=== PATIENT | female | born 1985 | race African-American/Black ===

== ENCOUNTER 2018-05-05 13:25 | Inpatient (IN) | payer OTHER ==
[~2018-05-05] VITALS: Ht 154.9 cm; Wt 96.8 kg
--- NOTE | 2018-05-05 14:40 | Diagnostic Imaging Report ---
EXAMINATION: CXR 2 VIEW - HOPD INDICATION: Chest pain. COMPARISON: None FINDINGS: TUBES and LINES: None. LUNGS: Lungs are mildly hypo inflated. Lungs are clear. There is no evidence of pneumonia or pulmonary edema. PLEURA: No pleural effusion or pneumothorax. HEART AND MEDIASTINUM: The cardiomediastinal silhouette is unremarkable. BONES AND SOFT TISSUES: No acute osseous lesion. Soft tissues are unremarkable. UPPER ABDOMEN: No free air under the diaphragm. IMPRESSION: No acute thoracic abnormality. Signed by: Dr. Gilberto Day M.D. on 05/05/2018 2:37 PM
[2018-05-05] MEDS ORDERED: FAMOTIDINE 20 MG/2 ML VIAL IV ONE (15:00)
[2018-05-05] MEDS ORDERED: PANTOPRAZOLE 40 MG 10ML VIAL IV ONE (15:00)
[2018-05-05] MEDS ORDERED: ENOXAPARIN SODIUM INJ 100 MG/ML SYR SC STA (15:11)
[2018-05-05] MEDS ORDERED: IOPAMIDOL 370 MG/ML 50ML INFUS..BTL INJ ONE (16:00)
--- NOTE | 2018-05-05 16:55 | Diagnostic Imaging Report ---
EXAM: CT Chest WITH contrast (PE Protocol) INDICATION: Chest pain. Elevated d-dimer. COMPARISON: None TECHNIQUE: Chest was scanned utilizing a multidetector helical scanner from the lung apex through the level of the diaphragm after administration of IV contrast. Thin section reconstructions were obtained with special concentration on the pulmonary arteries. Coronal and sagittal reformations were obtained. Pulmonary embolism protocol was performed. Coronal and sagittal MIP were acquired by the technologist on the scanner workstation. IV CONTRAST: 93 mL of Isovue 370 COMPLICATIONS: None RADIATION DOSE: Total DLP: 533.64 mGy*cm Estimated effective dose: (DLP x 0.014 x size factor) mSv CTDIvol has been reviewed. It is below the limits set by the Radiation Protocol Committee (RPC). FINDINGS: LINES/ TUBES: None. LUNGS AND AIRWAYS: Adequate contrast bolus. Scattered small volume subacute to chronic pulmonary emboli with mild eccentric filling defects. The associated vessel demonstrates decreased caliber in size. * Posterior branch of the right upper lobe (series 2 image 31) * Superior segment of the right lower lobe (series 2 image 39) * Superior segment of the left lower lobe (series 2 image 37). The lungs are unremarkable. Airways are normal. PLEURA: The pleural spaces are clear. HEART AND MEDIASTINUM: The thyroid gland is normal. No mediastinal, hilar or axillary lymphadenopathy. The heart is normal in size. There is no pericardial effusion. Main pulmonary artery measures 2.4 cm in diameter and the ascending aorta measures 2.8 cm. UPPER ABDOMEN: Unremarkable BONES: The visualized bony thorax is within normal limits. SOFT TISSUES: Unremarkable. IMPRESSION: A few scattered subacute to chronic pulmonary emboli. Results were discussed with Dr. Lorenzo by Dr. Day on 05/05/2018 at 4:50 PM. Signed by: Dr. Gilberto Day M.D. on 05/05/2018 4:51 PM
[2018-05-05] MEDS ORDERED: SODIUM CHLORIDE FLUSH 10 ML SYR INJ PRN (17:45)
[2018-05-05] MEDS ORDERED: ENOXAPARIN SODIUM INJ 100 MG/ML SYR SC SCH (18:00)
[2018-05-05 20:00] VITALS: BP 155/91
[2018-05-05 22:40] LABS: CREATINE KINASE MB 0.5 ng/mL (0-5.0)
[2018-05-06] VITALS (9 sets, daily range): BP systolic 114–152; BP diastolic 53–88
[2018-05-06] MEDS: ENOXAPARIN SODIUM INJ 100 MG/ML SYR SC SCH ×2 (03:10→15:06)
[2018-05-06 06:03] LABS: BASOPHILS % 0.6 % (0.0-1.0); EOSINOPHILS # (AUTO) 0.1 (0.0-0.4); EOSINOPHILS % 1.3 % (0.0-6.0); HEMATOCRIT 37.6 % (34.2-44.1); HEMOGLOBIN 12.4 g/dL (12.0-16.0); LYMPHOCYTES # (AUTO) 3.6 (1.0-3.2); LYMPHOCYTES % 50.8 % (18.0-39.1); MEAN CORPUSCULAR HEMOGLOBIN 28.7 pg (28-32); MONOCYTES # (AUTO) 0.6 (0.2-0.8); MONOCYTES % 8.6 % (4.4-11.3); NEUTROPHILS # (AUTO) 2.7 (2.1-6.9); NEUTROPHILS % 38.6 % (38.7-80.0); PLATELET COUNT 268 x10e3/uL (140-360); RED BLOOD COUNT 4.32 x10e6/uL (3.6-5.1); RED CELL DISTRIBUTION WIDTH 13.6 % (11.7-14.4)
[2018-05-06 06:16] LABS: PROTHROMBIN TIME 14.1 seconds (11.9-14.5)
[2018-05-06 06:17] LABS: PARTIAL THROMBOPLASTIN TIME 37.2 seconds (23.8-35.5)
[2018-05-06 06:32] LABS: ALANINE AMINOTRANSFERASE 12 IU/L (0-55); ALBUMIN 3.4 g/dL (3.5-5.0); ALKALINE PHOSPHATASE 50 IU/L (40-150); ANION GAP 11.5 mmol/L (8-16); BLOOD UREA NITROGEN 14 mg/dL (7-26); BUN/CREATININE RATIO 17 (6-25); CALCIUM 9.1 mg/dL (8.4-10.2); CARBON DIOXIDE 24 mmol/L (22-29); CHLORIDE 108 mmol/L (98-107); CHOL/HDL RATIO 3.3 (3.0-3.6); CHOLESTEROL 137 MD/DL (0-199); CREATININE, SERUM 0.82 mg/dL (0.57-1.11); EST GLOMERULAR FILTRATION RATE > 60 ML/MIN (60-); GLUCOSE 93 mg/dL (74-118); HDL CHOLESTEROL 42 MG/DL (40-60); LDL CHOLESTEROL 81 MG/DL (60-130); MAGNESIUM 1.9 MG/DL (1.3-2.1); PHOSPHORUS 3.8 MG/DL (2.3-4.7); POTASSIUM 3.5 mmol/L (3.5-5.1); SODIUM 140 mmol/L (136-145); TRIGLYCERIDES 70 MG/DL (0-149)
[2018-05-06 06:48] LABS: CREATINE KINASE 121 IU/L (29-168)
[2018-05-06] MEDS: PANTOPRAZOLE SOD 40 MG TABEC PO SCH (09:03)
--- NOTE | 2018-05-06 11:54 | History and Physical ---
PRIMARY CARE PHYSICIAN: None. CHIEF COMPLAINT: Chest pain. HISTORY OF PRESENT ILLNESS: This is a 32-year-old woman with no significant medical history, who recently traveled by airline using [employer] to [place] in January 2018, returned in February. She drove by car to [place] and to [place] and subsequently returned here by car to [place]. Now, she developed substernal chest pain for 7 days. She denies any nausea, vomiting, or dizziness. Denies any vision changes. Described the chest pressure as 8/10, now 3/10. CT of the chest showed a few scattered subacute to chronic pulmonary emboli. She is admitted for further evaluation and management. Patient admits to oral contraceptive pill use. PAST MEDICAL HISTORY: None. PAST SURGICAL HISTORY: x2, breast reduction. ALLERGIES: PER ELECTRONIC MEDICAL RECORD. SOCIAL HISTORY: Patient is . She has 2 children. No alcohol, illicits, or cigarettes. FAMILY HISTORY: No history of venous thromboembolism. MEDICATIONS: Per electronic medical record. REVIEW OF SYSTEMS: She denies any dizziness, vision changes, nausea, vomiting, diarrhea. Denies any leg pain, back pain. PHYSICAL EXAMINATION: VITAL SIGNS: Have been reviewed. GENERAL APPEARANCE: Tired-appearing woman resting in bed. HEENT: Anicteric. Pupils respond to light. No oral lesions. CARDIOVASCULAR: Normal S1 and S2. LUNGS: She has moderate breath sounds. ABDOMEN: Soft, nontender, nondistended. EXTREMITIES: No edema. Calf exam is deferred. SKIN: Dry. PSYCHIATRIC: Normal affect. NEUROLOGICAL: Alert and oriented x3. LABS: Reviewed. MEDICATIONS: Reviewed. ASSESSMENT: This is a 32-year-old woman. 1. Subacute pulmonary embolism. 2. Obesity. Body mass index is 39.5. 3. Oral contraceptive pill use. PLAN: 1. Will continue with Lovenox treatment dose. 2. Will add Coumadin. Patient has funding difficulties, that is why she will need to be on Coumadin. 3. Will follow INR. Once it is therapeutic between 2 and 3 for 2 consecutive days, we will plan to discharge home with Coumadin regimen. 4. Prophylaxis. Will use PPI while on Lovenox. Job#: [id number]
[2018-05-06 14:49] LABS: CREATINE KINASE 130 IU/L (29-168)
[2018-05-06] MEDS: WARFARIN SOD 5 MG TAB PO SCH (16:51)
[2018-05-07] VITALS (8 sets, daily range): BP systolic 112–154; BP diastolic 58–109
[2018-05-07] MEDS: ENOXAPARIN SODIUM INJ 100 MG/ML SYR SC SCH ×2 (03:29→14:31)
[2018-05-07 05:32] LABS: INR 0.93; PROTHROMBIN TIME 13.3 seconds (11.9-14.5)
[2018-05-07] MEDS: PANTOPRAZOLE SOD 40 MG TABEC PO SCH (07:44)
[2018-05-07] MEDS: WARFARIN SOD 5 MG TAB PO SCH (16:55)
--- NOTE | 2018-05-07 22:59 | Progress Note ---
DATE: May 07, 2018 TIME: 7:00 a.m. OVERNIGHT: No events. REVIEW OF SYSTEMS: Denies any dizziness, vision changes, leg pain, headache, nausea, vomiting, diarrhea. PHYSICAL EXAM VITAL SIGNS: Reviewed. GENERAL: A tired-appearing man resting in bed. HEENT: Anicteric. CARDIOVASCULAR: Normal S1, S2. LUNGS: Moderate breath sounds. ABDOMEN: Soft, nontender, nondistended. EXTREMITIES: No edema. NEUROLOGIC: Alert, oriented. LABS: Reviewed. MEDICATIONS: Reviewed. ASSESSMENT: A 32-year-old woman. 1. Subacute pulmonary embolism. 2. Obesity, body mass index 39.5. 3. Oral contraceptive pill use. PLAN 1. Continue Coumadin. 2. Continue Lovenox bridging. 3. INR 0.09. 4. Continue Coumadin at 7.5. 5. Follow up INR daily. 6. Continue PPI while on anticoagulant. Job#: [id number] CQ
[2018-05-08] VITALS (7 sets, daily range): BP systolic 94–146; BP diastolic 50–75
[2018-05-08] MEDS: ENOXAPARIN SODIUM INJ 100 MG/ML SYR SC SCH ×2 (03:11→16:09)
[2018-05-08 06:05] LABS: INR 0.93; PROTHROMBIN TIME 13.3 seconds (11.9-14.5)
[2018-05-08] MEDS: PANTOPRAZOLE SOD 40 MG TABEC PO SCH (08:08)
[2018-05-08] MEDS ORDERED: WARFARIN SOD 5 MG TAB PO SCH (17:00)
[2018-05-08 19:51] LABS: PROTHROMBIN TIME 14.1 seconds (11.9-14.5)
[2018-05-08] MEDS ORDERED: WARFARIN SOD 2.5 MG TAB PO ONE (20:30)
--- NOTE | 2018-05-08 22:27 | Progress Note ---
DATE: May 08, 2018 TIME: 6:30 a.m. OVERNIGHT: No events. REVIEW OF SYSTEMS: Denies any dizziness, chest pain. Denies any fever, chills, sweats, nausea, vomiting, diarrhea, leg pain, back pain, headache, vision changes. VITAL SIGNS: Reviewed. PHYSICAL EXAMINATION GENERAL: A tired-appearing woman resting in bed. HEENT: Anicteric. CARDIOVASCULAR: Normal S1, S2. LUNGS: Moderate breath sounds. ABDOMEN: Soft, nontender, nondistended. EXTREMITIES: No edema. SKIN: Dry. PSYCHIATRIC: Normal affect. LABS: Reviewed. MEDICATIONS: Reviewed. ASSESSMENT: A 32-year-old woman. 1. Subacute pulmonary embolism. 2. Obesity, body mass index 39.5. 3. Oral contraceptive pill use. PLAN 1. Increase Coumadin to 10 mg. 2. INR is still 0.9, may be resistant to Coumadin. Will follow up tomorrow. 3. Continue PPI while on oral anticoagulation. Job#: [id number]
[2018-05-09] VITALS (7 sets, daily range): BP systolic 96–140; BP diastolic 55–99
[2018-05-09] MEDS: ENOXAPARIN SODIUM INJ 100 MG/ML SYR SC SCH ×2 (03:19→15:29)
[2018-05-09 05:55] LABS: INR 1.07; PROTHROMBIN TIME 14.9 seconds (11.9-14.5)
[2018-05-09] MEDS: PANTOPRAZOLE SOD 40 MG TABEC PO SCH (09:08)
[2018-05-09 16:35] LABS: INR 1.13; PROTHROMBIN TIME 15.5 seconds (11.9-14.5)
[2018-05-09] MEDS ORDERED: WARFARIN SOD 5 MG TAB PO SCH (17:00)
[2018-05-09] MEDS: WARFARIN SOD 3 MG TAB PO SCH (17:32)
[2018-05-09] MEDS: WARFARIN SOD 5 MG TAB PO SCH (17:32)
[2018-05-10] VITALS (8 sets, daily range): BP systolic 111–128; BP diastolic 58–79
[2018-05-10] MEDS: ENOXAPARIN SODIUM INJ 100 MG/ML SYR SC SCH ×2 (03:29→15:54)
[2018-05-10 06:10] LABS: INR 1.36; PROTHROMBIN TIME 17.9 seconds (11.9-14.5)
[2018-05-10] MEDS: PANTOPRAZOLE SOD 40 MG TABEC PO SCH (07:30)
[2018-05-10 17:02] LABS: INR 1.42; PROTHROMBIN TIME 18.5 seconds (11.9-14.5)
[2018-05-10] MEDS: WARFARIN SOD 5 MG TAB PO SCH (17:52)
[2018-05-10] MEDS: WARFARIN SOD 3 MG TAB PO SCH (17:52)
[2018-05-11] VITALS (8 sets, daily range): BP systolic 91–131; BP diastolic 50–88
[2018-05-11] MEDS: ENOXAPARIN SODIUM INJ 100 MG/ML SYR SC SCH ×2 (03:40→15:30)
[2018-05-11 05:54] LABS: HEMATOCRIT 39.8 % (34.2-44.1)
[2018-05-11 06:06] LABS: INR 1.53; PROTHROMBIN TIME 19.7 seconds (11.9-14.5)
[2018-05-11] MEDS: PANTOPRAZOLE SOD 40 MG TABEC PO SCH (09:27)
[2018-05-11 16:09] LABS: INR 1.47; PROTHROMBIN TIME 19.1 seconds (11.9-14.5)
[2018-05-11] MEDS ORDERED: WARFARIN SOD 3 MG TAB PO SCH ×2 (17:00)
[2018-05-11] MEDS: WARFARIN SOD 3 MG TAB PO SCH (19:02)
[2018-05-11] MEDS: WARFARIN SOD 5 MG TAB PO SCH (19:02)
--- NOTE | 2018-05-11 23:53 | Progress Note ---
DATE: May 09, 2018 TIME: 7:35 a.m. OVERNIGHT: No events. REVIEW OF SYSTEMS: Denies any dizziness or chest pain. Denies any fever, chills, sweats, nausea, vomiting, or diarrhea. PHYSICAL EXAMINATION GENERAL APPEARANCE: A tired-appearing woman resting in bed. VITAL SIGNS: Reviewed. HEENT: Anicteric. CARDIOVASCULAR: Normal S1 and S2. LUNGS: Normal breath sounds. ABDOMEN: Soft, nontender, and nondistended. EXTREMITIES: No edema. SKIN: Dry. PSYCHIATRIC: Flat affect. LABS: Reviewed. MEDICATIONS: Reviewed. ASSESSMENT: A 32-year-old woman with: 1. Subacute pulmonary embolism. 2. Obesity, body mass index 39.5. 3. Oral contraceptive pill use. PLAN 1. Continue titrating Coumadin up. 2. INR was 1.07. 3. Follow INR daily. 4. Monitor hemoglobin and hematocrit. Job#: [id number] ZAY
--- NOTE | 2018-05-11 23:55 | Progress Note ---
DATE: May 10, 2018 TIME: 7:35 a.m. OVERNIGHT: No events. REVIEW OF SYSTEMS: Denies any dizziness or chest pain. Denies any fever, chills, sweats, nausea, vomiting, or diarrhea. PHYSICAL EXAMINATION GENERAL: A tired-appearing woman resting in bed. VITAL SIGNS: Reviewed. HEENT: Anicteric. CARDIOVASCULAR: Normal S1 and S2. LUNGS: Normal breath sounds. ABDOMEN: Soft, nontender, and nondistended. EXTREMITIES: No edema. SKIN: Dry. PSYCHIATRIC: Normal affect. LABS: Reviewed. MEDICATIONS: Reviewed. ASSESSMENT: A 32-year-old woman with: 1. Subacute pulmonary embolism. 2. Obesity, body mass index 39.5. 3. Oral contraceptive pill use. PLAN 1. Continue Coumadin, titrate up. 2. INR is beginning to improve. 3. Continue PPI. 4. Follow H and H. Job#: [id number] GOLD
[2018-05-12] VITALS (8 sets, daily range): BP systolic 111–138; BP diastolic 56–83
--- NOTE | 2018-05-12 00:39 | Progress Note ---
DATE: May 11, 2018 TIME: 7:35 a.m. OVERNIGHT: No events. REVIEW OF SYSTEMS: Denies any dizziness or chest pain. PHYSICAL EXAMINATION GENERAL APPEARANCE: A tired-appearing woman, resting in bed. VITAL SIGNS: Reviewed. HEENT: Anicteric. CARDIOVASCULAR: Normal S1 and S2. LUNGS: Normal breath sounds. ABDOMEN: Soft, nontender, and nondistended. EXTREMITIES: No edema. SKIN: Dry. PSYCHIATRIC: Normal affect. LABS: Reviewed. MEDICATIONS: Reviewed. ASSESSMENT: A 32-year-old woman with: 1. Subacute pulmonary embolism. 2. Obesity, body mass index 39.5. 3. Oral contraceptive pill use. 4. Low blood pressure. PLAN 1. INR 1.53; we will increase Coumadin to 60 mg. 2. Continue to follow INR. 3. Continue PPI. 4. Monitor for bleeding. Job#: [id number] GAU
[2018-05-12] MEDS: ENOXAPARIN SODIUM INJ 100 MG/ML SYR SC SCH ×2 (03:42→15:48)
[2018-05-12 05:41] LABS: INR 1.82; PROTHROMBIN TIME 22.5 seconds (11.9-14.5)
[2018-05-12] MEDS: PANTOPRAZOLE SOD 40 MG TABEC PO SCH (09:37)
[2018-05-12 16:33] LABS: INR 1.85; PROTHROMBIN TIME 22.8 seconds (11.9-14.5)
[2018-05-12] MEDS: WARFARIN SOD 5 MG TAB PO SCH ×2 (17:00→19:06)
[2018-05-12] MEDS: WARFARIN SOD 3 MG TAB PO SCH (17:00)
--- NOTE | 2018-05-12 17:39 | Progress Note ---
DATE: May 12, 2018 TIME OF SERVICE: 11:10 a.m. OVERNIGHT: No acute events. REVIEW OF SYSTEMS: Patient denies dizziness, chest pain, or shortness of breath. Denies nausea, vomiting, diarrhea, fevers, chills, sweats, or leg pain. PHYSICAL EXAMINATION VITAL SIGNS: T 97.3, P 87, R 16, BP 138/83, and SpO2 on RA 100%. GENERAL APPEARANCE: This is a tired-appearing woman, sitting on the side of bed. HEENT: Normocephalic without sinus tenderness. Mucous membranes moist and intact. NECK: Trachea midline without JVD. CARDIOVASCULAR: Regular rate. S1, S2 without extracardiac sounds appreciated. LUNGS: Bilateral breath sounds are clear to auscultation. ABDOMEN: Soft, nontender, nondistended. EXTREMITIES: Without edema. SKIN: Dry. PSYCHIATRIC: Normal affect. LABS: Reviewed. INR this a.m. is 1.82. MEDICATIONS 1. Protonix 40 mg a.c. breakfast. 2. Lovenox 90 mg subcu q.12 hours. 3. Coumadin current dose 50 mg at 1700. ASSESSMENT AND PLAN: This is a 32-year-old female with; 1. Subacute pulmonary embolism. INR 1.8 this day. Coumadin increased to 50 mg. Followup INR pending this afternoon. 2. Obesity, body mass index 39.5. Outpatient calorie management. 3. Oral contraceptive pill use. Patient instructed to discontinue and follow up as outpatient for alternate form of control. 4. Low blood pressure. Continue to monitor. 5. Prophylaxis, ambulation and with anticoagulation and Protonix. In addition, continue to follow INR. Monitor for bleeding. Dictated by: Sid Ferris NP Job#: [id number] FANNIE
[2018-05-12] MEDS: WARFARIN SOD 2 MG TAB PO SCH (19:05)
[2018-05-13] VITALS (8 sets, daily range): BP systolic 104–151; BP diastolic 59–84
[2018-05-13] MEDS: ENOXAPARIN SODIUM INJ 100 MG/ML SYR SC SCH ×2 (03:18→16:28)
[2018-05-13 06:49] LABS: INR 2.18; PROTHROMBIN TIME 25.9 seconds (11.9-14.5)
[2018-05-13] MEDS: PANTOPRAZOLE SOD 40 MG TABEC PO SCH (08:45)
[2018-05-13] MEDS: WARFARIN SOD 2 MG TAB PO SCH (16:00)
[2018-05-13] MEDS: WARFARIN SOD 5 MG TAB PO SCH ×2 (16:05→17:34)
[2018-05-13 16:41] LABS: HEMATOCRIT 39.7 % (34.2-44.1)
[2018-05-13 16:52] LABS: INR 1.91; PROTHROMBIN TIME 23.4 seconds (11.9-14.5)
[2018-05-13] MEDS: WARFARIN SOD 3 MG TAB PO SCH (17:33)
[2018-05-14] VITALS: BP 127/78
[2018-05-14] MEDS: ENOXAPARIN SODIUM INJ 100 MG/ML SYR SC SCH ×2 (03:13→16:26)
[2018-05-14 04:00] VITALS: BP 116/56
[2018-05-14] MEDS ORDERED: COUMADIN5 MG PO (04:51)
[2018-05-14] MEDS ORDERED: PROTONIX40 MG/ML PO (04:51)
[2018-05-14 06:28] LABS: INR 2.25; PROTHROMBIN TIME 26.6 seconds (11.9-14.5)
[2018-05-14 09:06] VITALS: BP 98/54
[2018-05-14] MEDS: PANTOPRAZOLE SOD 40 MG TABEC PO SCH (09:30)
[2018-05-14 10:40] VITALS: BP 98/54
[2018-05-14 12:19] VITALS: BP 112/53
[2018-05-14] MEDS: WARFARIN SOD 3 MG TAB PO SCH (16:00)
[2018-05-14] MEDS: WARFARIN SOD 5 MG TAB PO SCH (16:00)
--- NOTE | 2018-05-14 19:55 | Progress Note ---
DATE: May 13, 2018 TIME: 7:45 a.m. OVERNIGHT: No events. REVIEW OF SYSTEMS: Denies any dizziness, chest pain, shortness of breath, fever, chills, sweats, nausea, vomiting, diarrhea. PHYSICAL EXAMINATION: VITAL SIGNS: Reviewed. GENERAL APPEARANCE: Tired-appearing woman resting in bed. HEENT: Anicteric. CARDIOVASCULAR: Normal S1 and S2. LUNGS: Moderate breath sounds. ABDOMEN: Soft, nontender, nondistended. EXTREMITIES: No edema. SKIN: Dry. PSYCHIATRIC: Normal affect. LABS: Reviewed. MEDICATIONS: Reviewed. ASSESSMENT: A 32-year-old woman. 1. Subacute pulmonary embolism. 2. Obesity. Body mass index 39.5. 3. Oral contraceptive pill use. PLAN: 1. Continue Coumadin dose and increase as appropriate. 2. Follow up INR. 3. Discharge planning. Job#: [id number]
--- NOTE | 2018-05-14 20:06 | Discharge Summary ---
PRINCIPAL DIAGNOSES: 1. Subacute pulmonary embolism. 2. Obesity. Body mass index 39.5. 3. Oral contraceptive pill use. SECONDARY DIAGNOSIS: Oral contraceptive pill use. CHIEF COMPLAINT AND HISTORY OF PRESENT ILLNESS: Please refer to H and P. HOSPITAL COURSE: Patient found to have subacute pulmonary embolism, started on Coumadin. Patient Coumadin a day, increased Coumadin to 50 mg daily. She had obesity, BMI 39.5. Oral contraceptive pill use, I have encouraged her to quit OCP (oral contraceptive pill) use, and she will need to follow up closely outpatient. DISCHARGE MEDICATIONS: Per electronic medical record. FOLLOWUP: With primary care doctor in 1 week. CONDITION ON DISCHARGE: Stable and improving. DISCHARGE LOCATION: Home. DARIN PATEL MD Job#: [id number]
--- OUTSIDE RECORDS SUMMARY | 2018-05-21 09:02 | XMS REPORT ---
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 Allergies, Adverse Reactions, Alerts This patient has no known allergies or adverse reactions. Medications This patient has no known medications. Results Test Description Test Time Test Comments Text Results Atomic Results Result Comments CT ANGIO CHEST-HOPD 2018-05-05 16:42:00 [facility] [address] [place], [place] [address] Patient Name: YVROSE BLACK MR #: [id number] : 1985 Age/Sex: 32/F Req #: [id number] Adm Physician: Ordered by: MYRIAM SU MD Report #: [id number] Location: [facility] Room/Bed: Procedure: [id number] HOPD/CT ANGIO CHEST-HOPD Exam Date: 05/05/18 Exam Time: 1540 REPORT STATUS: Signed EXAM: CT Chest WITH contrast (PE Protocol) INDICATION: Chest pain. Elevated d-dimer. COMPARISON: None TECHNIQUE: Chest was scanned utilizing a multidetector helical scanner from the lung apex through the level of the diaphragm after administration of IV contrast. Thin section reconstructions were obtained with special concentration on the pulmonary arteries. Coronal and sagittal reformations were obtained. Pulmonary embolism protocol was performed. Coronal and sagittal MIP were acquired by the technologist on the scanner workstation. IV CONTRAST: 93 mL of Isovue 370 COMPLICATIONS: None RADIATION DOSE: Total DLP: 533.64 mGy*cm Estimated effective dose: (DLP x 0.014 x size factor) mSv CTDIvol has been reviewed. It is below the limits set by the Radiation Protocol Committee (RPC). FINDINGS: LINES/ TUBES: None. LUNGS AND AIRWAYS: Adequate contrast bolus. Scattered small volume subacute to chronic pulmonary emboli with mild eccentric filling defects. The associated vessel demonstrates decreased caliber in size. * Posterior branch of the right upper lobe (series 2 image 31) * Superior segment of the right lower lobe (series 2 image 39) * Superior segment of the left lower lobe (series 2 image 37). The lungs are unremarkable. Airways are normal. PLEURA: The pleural spaces are clear. HEART AND MEDIASTINUM: The thyroid gland is normal. No mediastinal, hilar or axillary lymphadenopathy. The heart is normal in size. There is no pericardial effusion. Main pulmonary artery measures 2.4 cm in diameter and the ascending aorta measures 2.8 cm. UPPER ABDOMEN: Unremarkable BONES: The visualized bony thorax is within normal limits. SOFT TISSUES: Unremarkable. IMPRESSION: A few scattered subacute to chronic pulmonary emboli. Results were discussed with Dr. Su by Dr. Day on 05/05/2018 at 4:50 PM. Signed by: Dr. Caitlin Day M.D. on 05/05/2018 4:51 PM Dictated By: CAITLIN DAY MD 50 Transcribed By: OMEGA on 05/05/181650 COPY TO: MYRIAM US MD CXR 2 VIEW - [facility] 2018-05-05 14:36:00 [place] [address] Patient Name: YVROSE BLACK MR #: [id number] : 1985 Age/Sex: 32/F Req #: [id number] Adm Physician: Ordered by: MYRIAM SU MD Report #: [id number] Location: [facility] Room/Bed: Procedure: [id number] HOPD/CXR 2 VIEW - HOPD Exam Date: 05/05/18 Exam Time: 1420 REPORT STATUS: Signed EXAMINATION: CXR 2 VIEW - HOPD INDICATION: Chest pain. COMPARISON: None FINDINGS: TUBES and LINES: None. LUNGS: Lungs are mildly hypo inflated. Lungs are clear. There is no evidence of pneumonia or pulmonary edema. PLEURA: No pleural effusion or pneumothorax. HEART AND MEDIASTINUM: The cardiomediastinal silhouette is unremarkable. BONES AND SOFT TISSUES: No acute osseous lesion. Soft tissues are unremarkable. UPPER ABDOMEN: No free air under the diaphragm. IMPRESSION: No acute thoracic abnormality. Signed by: Dr. Caitlin Day M.D. on 05/05/2018 2:37 PM Dictated By: CAITLIN DAY MD 1432 Transcribed By: OMEGA on 05/05/18 1437 COPY TO: MYRIAM SU MD
== END 2018-05-14 16:35 | disposition home or self-care (01) | DRG 176 ==
LOC: FSED 13:25 → ERHOLD 17:44 → MED/SURG 18:40
PROVIDERS: ADMIT Internal Medicine; ATTEND Internal Medicine
DX: I26.99 Other pulmonary embolism without acute cor pulmonale (principal); Z68.41 Body mass index [BMI] 40.0-44.9, adult; E66.9 Obesity, unspecified; I95.9 Hypotension, unspecified; Z79.3 Long term (current) use of hormonal contraceptives; Z28.21 Immunization not carried out because of patient refusal
CPT/HCPCS: 36415; 71046; 71275; 80048; 80053; 80061; 80076; 80307; 81003; 81025; 82550; 82553; 83036; 83735; 84100; 84484; 85014; 85018; 85025; 85379; 85610; 85730; 93005; 99284; J1650; Q9967

== ENCOUNTER 2018-12-20 08:24 | Emergency (ER) | payer OTHER ==
[~2018-12-20] VITALS: Ht 154.9 cm; Wt 96.6 kg
[~2018-12-20 08:24] MED LIST: COUMADIN5 MG PO; PROTONIX40 MG/ML PO
[2018-12-20] MEDS ORDERED: SODIUM CHLORIDE 0.9% 50ML 50 ML ONE (10:28)
[2018-12-20] MEDS ORDERED: IOPAMIDOL 370 MG/ML 200 ML INFUS..BTL INJ ONE (10:28)
--- NOTE | 2018-12-20 10:45 | NUR ---
PENDING CT RESULTS. DENIES SOB. NO CP
--- NOTE | 2018-12-20 10:45 | Diagnostic Imaging Report ---
EXAM: CT Chest WITH contrast 12/20/2018 12:00 AM INDICATION: Chest pain COMPARISON: CT chest PE protocol, 05/05/2018 TECHNIQUE: Chest was scanned utilizing a multidetector helical scanner from the lung apex through the level of the diaphragm after administration of IV contrast. Thin section reconstructions were obtained with special concentration on the pulmonary arteries. Coronal and sagittal reformations were obtained. Pulmonary embolism protocol was performed. Dose modulation, iterative reconstruction, and/or weight based adjustment of the mA/kV was utilized to reduce the radiation dose to as low as reasonably achievable IV CONTRAST: 100 cc Isovue-370 RADIATION DOSE: Total DLP: 472.13 mGy*cm Estimated effective dose: (DLP x 0.014 x size factor) mSv COMPLICATIONS: None FINDINGS: LINES/ TUBES: None. LUNGS AND AIRWAYS: Suboptimal contrast bolus with extensive motion and mixing artifact in the main pulmonary arteries. Previously described filling defects in the posterior branch of the right upper lobe (series 2, image 29), superior segment right lower lobe (image 38) and superior segment left lower lobe (image 35) are no longer seen. To the limits of vessel opacification, there are no new filling defects. No focal pulmonary opacity. Airways are normal. PLEURA: The pleural spaces are clear. HEART AND MEDIASTINUM: The thyroid gland is normal. No mediastinal, hilar or axillary lymphadenopathy. The heart is normal in size.. There is no pericardial effusion. No aneurysm or dissection of the thoracic aorta. Main pulmonary artery measures 2.0 cm, nondilated. UPPER ABDOMEN: Included portions of the liver, spleen, pancreas, adrenals and kidneys show no focal abnormality. BONES: No acute or suspicious bony lesions. SOFT TISSUES: Superficial surrounding soft tissue unremarkable. IMPRESSION: 1. Suboptimal bolus. Pulmonary artery visualization is suboptimal due to motion and mixing artifact. The previously noted segmental filling defects are no longer identified and have apparently resolved. No new filling defects are seen. 2. No focal pulmonary opacity or pleural effusion. 3. No dilatation of the main pulmonary artery. No aneurysm or dissection of the thoracic aorta. Staff: Edwardo Signed by: Dr. Waqas Brooke M.D. on 12/20/2018 10:42 AM
== END 2018-12-20 11:49 | disposition home or self-care (01) ==
LOC: FSED 08:24
DX: R07.89 Other chest pain (principal); R06.00 Dyspnea, unspecified
CPT/HCPCS: 71275; 80053; 82553; 84484; 85025; 85610; 93005; 99284; Q9967

== ENCOUNTER 2020-02-14 11:09 | Emergency (ER) | payer OTHER ==
[~2020-02-14] VITALS: Ht 154.9 cm; Wt 87.1 kg
[2020-02-14] MEDS ORDERED: XARELTO20 MG (11:27)
[2020-02-14] MEDS ORDERED: METOPROLOL SUCC50 MG PO (11:27)
[2020-02-14] MEDS ORDERED: TIZANIDINE HCL4 MG PO (11:46)
[2020-02-14] MEDS ORDERED: ACETAMINOPHEN500 MG PO (11:46)
--- NOTE | 2020-02-14 11:46 | Emergency Department Note ---
History of Present Illnes History of Present Illness Chief Complaint: Back Pain History of Present Illness This is a 34 year old female, Reports that since she has had mid to low back pain and has a hx of PE so she just wants to get checked out and make sure she does not have another one, as she has been feeling hot lately but does not have a temp and that is how she felt when she was dx with her last one. She is currently taking Xeralto blood thinner. She has no SOB, saturation at 98 % RA . Historian: Patient Arrival Mode: Car Additional Treatment OUTPATIENT PHYSICAL THERAPIST: tylenol 650mg 1000 Fine Unhairer Required: No Radiation: Reports back Severity: mild, moderate Onset quality: gradual Progression: improving Relieving factors: none Exacerbating factors: none Associated symptoms: Reports denies other symptoms Treatments prior to arrival: none Past Medical/Family History Physician Review I have reviewed the patient's past medical and family history. Any updates have been documented here. Past Medical History Recent Fever: No Clinical Suspicion of Infectio: No New/Unexplained Change in Ment: No Past Medical History: Hypertension, DVT/PE Other Medical History: P.E. ON XAROLTO Past Surgical History: Other Surgery: x2 breast reduction Social History Smoking Cessation: Never Smoker Counseling Performed: No Alcohol Use: None Any Illegal Drug Use: No Physically hurt or threatened: No Other Last Tetanus: no Any Pre-Existing Lines (PICC,: No Review of Systems Review of Systems Constitutional: Reports no symptoms EENTM: Reports no symptoms Cardiovascular: Reports no symptoms Respiratory: Reports no symptoms Gastrointestinal: Reports no symptoms Genitourinary: Reports no symptoms Musculoskeletal: Reports as per HPI, Reports back pain Integumentary: Reports no symptoms Neurological: Reports no symptoms Psychological: Reports no symptoms Endocrine: Reports no symptoms Hematological/Lymphatic: Reports no symptoms Physical Exam Related Data Allergies: Coded Allergies: hydrocodone (Verified Allergy, Mild, itching, 02/14/20) pt can and does take tylenol as she is on blood thinners Triage Vital Signs Vital Signs Date Time Temp Pulse Resp B/P (MAP) Pulse Ox O2 Delivery O2 Flow Rate FiO2 02/14/20 11:15 97.3 100 16 150/99 100 Room Air Physical Exam CONSTITUTIONAL Constitutional: Present well-developed, Present well-nourished HENT HENT: Present normocephalic, Present atraumatic, Present oropharynx clear/moist, Present nose normal HENT L/R: Present left ext ear normal, Present right ext ear normal EYES Eyes: Reports PERRL, Reports conjunctivae normal NECK Neck: Present ROM normal PULMONARY Pulmonary: Present effort normal, Present breath sounds normal CARDIOVASCULAR Cardiovascular: Present regular rhythm, Present heart sounds normal, Present capillary refill normal, Present normal rate GASTROINTESTINAL Abdominal: Present soft, Present nontender, Present bowel sounds normal GENITOURINARY Genitourinary: Present exam deferred SKIN Skin: Present warm, Present dry MUSCULOSKELETAL Musculoskeletal: Present tenderness (paraspinous muscle tenderness) NEUROLOGICAL Neurological: Present alert, Present oriented x 3, Present no gross motor or sensory deficits PSYCHOLOGICAL Psychological: Present mood/affect normal, Present judgement normal Results Laboratory Lab results reviewed: Yes Assessment & Plan Medical Decision Making MDM musculoskeletal pain, doubt an other PE Reassessment Reassessment walking steady gait, in NAD Assessment & Plan Final Impression: (1) Acute bilateral back pain (2) Muscle spasm Depart Disposition: HOME, SELF-CARE Last Vital Signs Date Time Temp Pulse Resp B/P (MAP) Pulse Ox O2 Delivery O2 Flow Rate FiO2 02/14/20 11:15 97.3 100 16 150/99 100 Room Air Home Meds Active Scripts Acetaminophen (ACETAMINOPHEN) 500 Mg Tablet, 1 TAB PO Q6H PRN for pain, #90 THERAPEUTICALLY SUBSTITUTED WITH ACETAMINOPHEN 325MG Prov:IRWIN NUGENT MD 02/14/20 Tizanidine Hcl (TIZANIDINE HCL) 4 Mg Tablet, 4 MG PO Q8H PRN for pain, #20 TAB Prov:IRWIN NUGENT MD 02/14/20 Reported Medications Metoprolol Succinate (METOPROLOL SUCCINATE) 50 Mg Tab.er.24h, 50 MG PO DAILY, MG 02/14/20 Rivaroxaban (XARELTO) 20 Mg Tablet, DAILY 02/14/20 Discontinued Scripts Warfarin Sodium (COUMADIN) 5 Mg Tablet, 18 MG PO QD17 for 10 Days Prov:DARIN PATEL MD 05/14/18 Pantoprazole Sod (PROTONIX) 40 Mg/Ml Susp, 40 MG PO ACB for 30 Days Prov:DARIN PATEL MD 05/14/18 IRWIN NUGENT MD Feb 14, 2020 11:46
[2020-02-16] MEDS ORDERED: AZITHROMYCIN250 MG PO (00:15)
== END 2020-02-14 12:00 | disposition home or self-care (01) ==
LOC: FSED 11:34
DX: M54.5 Low back pain (principal); M62.830 Muscle spasm of back; I10 Essential (primary) hypertension; Z79.01 Long term (current) use of anticoagulants; Z86.711 Personal history of pulmonary embolism
CPT/HCPCS: 81003; 99283

== ENCOUNTER 2020-02-15 18:06 | Emergency (ER) | payer OTHER ==
[~2020-02-15] VITALS: Ht 154.9 cm; Wt 87.1 kg
[~2020-02-15 18:06] MED LIST changes: +ACETAMINOPHEN500 MG PO; +METOPROLOL SUCC50 MG PO; +TIZANIDINE HCL4 MG PO; +XARELTO20 MG
[2020-02-15 19:24] LABS: BASOPHILS % 0.3 % (0.0-1.0); EOSINOPHILS % 0.5 % (0.0-6.0); HEMATOCRIT 36.9 % (34.2-44.1); HEMOGLOBIN 11.1 g/dL (12.0-16.0); LYMPHOCYTES # (AUTO) 0.9 (1.0-3.2); LYMPHOCYTES % 23.7 % (18.0-39.1); MEAN CORPUSCULAR HEMOGLOBIN 24.7 pg (28-32); MEAN CORPUSCULAR HGB CONC 30.1 g/dL (31-35); MEAN CORPUSCULAR VOLUME 82.2 fL (81-99); MONOCYTES # (AUTO) 0.4 (0.2-0.8); MONOCYTES % 11.3 % (4.4-11.3); NEUTROPHILS # (AUTO) 2.4 (2.1-6.9); NEUTROPHILS % 63.9 % (38.7-80.0); PLATELET COUNT 286 x10e3/uL (140-360); RED BLOOD COUNT 4.49 x10e6/uL (3.6-5.1); RED CELL DISTRIBUTION WIDTH 15.6 % (11.7-14.4)
[2020-02-15 19:33] LABS: CLARITY,URINE SL CLOUDY (CLEAR); COLOR,URINE YELLOW (YELLOW)
[2020-02-15 19:35] LABS: BILIRUBIN,URINE NEGATIVE (NEGATIVE); KETONES,URINE NEGATIVE (NEGATIVE); LEUKOCYTE ESTERASE ,URINE NEGATIVE (NEGATIVE); NITRITE,URINE NEGATIVE (NEGATIVE); PROTEIN,URINE DIPSTICK NEGATIVE (NEGATIVE); URINE UROBILINOGEN 0.2 mg/dL (0.2 - 1)
[2020-02-15 19:37] LABS: INR 1.05; PARTIAL THROMBOPLASTIN TIME 30.5 seconds (23.8-35.5); PROTHROMBIN TIME 14.3 seconds (11.9-14.5)
[2020-02-15 19:39] LABS: BACTERIA,URINE MODERATE /HPF; EPITHELIAL CELLS,URINE MODERATE /LPF; WBC,URINE (MAN) 0-5 /HPF (0-5)
[2020-02-15 19:44] LABS: ALANINE AMINOTRANSFERASE 38 IU/L (0-55); ALBUMIN 4.1 g/dL (3.5-5.0); ALBUMIN/GLOBULIN RATIO 1.1 (0.8-2.0); ALKALINE PHOSPHATASE 72 IU/L (40-150); ANION GAP 12.1 mmol/L (8-16); BLOOD UREA NITROGEN 6 mg/dL (7-26); BUN/CREATININE RATIO 6 (6-25); CALCIUM 9.5 mg/dL (8.4-10.2); CARBON DIOXIDE 27 mmol/L (22-29); CHLORIDE 104 mmol/L (98-107); CREATINE KINASE 115 IU/L (29-168); CREATININE, SERUM 0.98 mg/dL (0.57-1.11); EST GLOMERULAR FILTRATION RATE > 60 ML/MIN (60-); GLUCOSE 98 mg/dL (74-118); POTASSIUM 4.1 mmol/L (3.5-5.1); SODIUM 139 mmol/L (136-145)
--- NOTE | 2020-02-15 19:55 | Diagnostic Imaging Report ---
EXAMINATION: CHEST SINGLE (PORTABLE) INDICATION: Chest pain, short of breath, abdominal pain, pending Covid test COMPARISON: None FINDINGS: TUBES and LINES: None. LUNGS: Low lung volumes. Subtle right infrahilar and left basilar haziness. PLEURA: No pleural effusion or pneumothorax. HEART AND MEDIASTINUM: Normal. BONES AND SOFT TISSUES: No acute osseous lesion. Soft tissues are unremarkable. UPPER ABDOMEN: No free air under the diaphragm. IMPRESSION: Low lung volumes. Subtle right infrahilar and left basilar haziness can be due to atelectasis or pneumonia. Lung field evaluation is limited due to suboptimal portable technique low lung volumes and body habitus. Signed by: Reginaldo Perez DO on 02/15/2020 7:51 PM
[2020-02-15] MEDS ORDERED: SODIUM CHLORIDE 0.9% 50ML 50 ML ONE (20:13)
[2020-02-15] MEDS ORDERED: IOPAMIDOL 370 MG/ML 200 ML INFUS..BTL INJ ONE (20:13)
--- NOTE | 2020-02-15 22:08 | Diagnostic Imaging Report ---
EXAM: CT Chest WITH contrast (PE protocol) 02/15/2020 8:55 PM INDICATION: Cough, congestion COMPARISON: Chest CT 12/20/2018 TECHNIQUE: Chest was scanned utilizing a multidetector helical scanner from the lung apex through the level of the diaphragm after administration of IV contrast. Thin section reconstructions were obtained with special concentration on the pulmonary arteries. Coronal and sagittal reformations were obtained. Pulmonary embolism protocol was performed. IV CONTRAST: 100 mL of Isovue 370 COMPLICATIONS: None RADIATION DOSE: Total DLP: 430 mGy*cm Estimated effective dose: (DLP x 0.014 x size factor) mSv CTDIvol has been reviewed. It is below the limits set by the Radiation Protocol Committee (RPC). Dose modulation, iterative reconstruction, and/or weight based adjustment of the mA/kV was utilized to reduce the radiation dose to as low as reasonably achievable. FINDINGS: LINES/ TUBES: None. LUNGS AND AIRWAYS: Subtle bibasilar ground glass haziness with subtle groundglass nodules. Focal groundglass opacity in the superior aspect of the right lower lobe a few other scattered groundglass opacities in left upper lobe. Airways are normal. PLEURA: The pleural spaces are clear. HEART AND MEDIASTINUM: The thyroid gland is normal. No mediastinal, hilar or axillary lymphadenopathy. The heart is normal in size. There is no pericardial effusion. UPPER ABDOMEN: Unremarkable. BONES: The visualized bony thorax is within normal limits. SOFT TISSUES: Unremarkable. IMPRESSION: Subtle scattered ground glass opacities concerning for viral pneumonia. No pulmonary embolus. Signed by: Reginaldo Perez DO on 02/15/2020 10:05 PM
--- NOTE | 2020-02-15 22:38 | Emergency Department Note ---
History of Present Illnes History of Present Illness Chief Complaint: Respiratory History of Present Illness This is a 34 year old female arrives to the ED with complaints of cough fever generalized malaise patient was concerned she might have a pulmonary embolus. Patient states travel for work and became sick. Patient states she has been self quarantining February 08 her children and are doing well. Chief Complaint Comment C/O COUGH, DIFFICULTY BREATHING, CP, BACK PAIN STARTED THURS HX OF PE WENT TO URGENT CARE AND TOLD RIGHT LUNG SOUNDED WHEEZY AND SUGGESTED PT GO TO ER FOR FURTHER EVAL C/O ABD BREATHING Historian: Patient Arrival Mode: Car Onset (how long ago): day(s) Radiation: Reports non-radiation Duration (how long): day(s) Timing of current episode: constant Progression: unchanged Chronicity: new Relieving factors: none Exacerbating factors: none Past Medical/Family History Physician Review I have reviewed the patient's past medical and family history. Any updates have been documented here. Past Medical History Recent Fever: Yes Clinical Suspicion of Infectio: Yes New/Unexplained Change in Ment: No Past Medical History: Hypertension, DVT/PE Other Medical History: P.E. ON XAROLTO Past Surgical History: Other Surgery: x2 breast reduction Social History Smoking Cessation: Never Smoker Counseling Performed: No Alcohol Use: None Any Illegal Drug Use: No Physically hurt or threatened: No Other Last Tetanus: no Any Pre-Existing Lines (PICC,: No Review of Systems Review of Systems Constitutional: Reports as per HPI, Reports fever EENTM: Reports no symptoms Cardiovascular: Reports no symptoms Respiratory: Reports as per HPI, Reports cough Gastrointestinal: Reports no symptoms Genitourinary: Reports no symptoms Musculoskeletal: Reports no symptoms Integumentary: Reports no symptoms Neurological: Reports no symptoms Psychological: Reports no symptoms Endocrine: Reports no symptoms Hematological/Lymphatic: Reports no symptoms Physical Exam Related Data Allergies: Coded Allergies: hydrocodone (Verified Allergy, Mild, itching, 02/14/20) pt can and does take tylenol as she is on blood thinners Triage Vital Signs Vital Signs Date Time Temp Pulse Resp B/P (MAP) Pulse Ox O2 Delivery O2 Flow Rate FiO2 02/15/20 18:18 101.4 92 18 125/90 99 Room Air Vital signs reviewed: Yes Physical Exam CONSTITUTIONAL Constitutional: Present well-developed, Present well-nourished HENT HENT: Present normocephalic, Present atraumatic, Present oropharynx erlin r/moist, Present nose normal HENT L/R: Present left ext ear normal, Present right ext ear normal EYES Eyes: Reports PERRL, Reports conjunctivae normal NECK Neck: Present ROM normal PULMONARY Pulmonary: Present effort normal, Present breath sounds normal CARDIOVASCULAR Cardiovascular: Present regular rhythm, Present heart sounds normal, Present capillary refill normal, Present normal rate GASTROINTESTINAL Abdominal: Present soft, Present nontender, Present bowel sounds normal GENITOURINARY Genitourinary: Present exam deferred SKIN Skin: Present warm, Present dry MUSCULOSKELETAL Musculoskeletal: Present ROM normal NEUROLOGICAL Neurological: Present alert, Present oriented x 3, Present no gross motor or sensory deficits PSYCHOLOGICAL Psychological: Present mood/affect normal, Present judgement normal Results Laboratory Result Diagram: 02/15/205 02/15/205 Laboratory Laboratory Tests Test 02/15/20 18:45 White Blood Count 3.80 x10e3/uL (4.8-10.8) Red Blood Count 4.49 x10e6/uL (3.6-5.1) Hemoglobin 11.1 g/dL (12.0-16.0) Hematocrit 36.9 % (34.2-44.1) Mean Corpuscular Volume 82.2 fL (81-99) Mean Corpuscular Hemoglobin 24.7 pg (28-32) Mean Corpuscular Hemoglobin Concent 30.1 g/dL (31-35) Red Cell Distribution Width 15.6 % (11.7-14.4) Platelet Count 286 x10e3/uL (140-360) Neutrophils (%) (Auto) 63.9 % (38.7-80.0) Lymphocytes (%) (Auto) 23.7 % (18.0-39.1) Monocytes (%) (Auto) 11.3 % (4.4-11.3) Eosinophils (%) (Auto) 0.5 % (0.0-6.0) Basophils (%) (Auto) 0.3 % (0.0-1.0) Neutrophils # (Auto) 2.4 (2.1-6.9) Lymphocytes # (Auto) 0.9 (1.0-3.2) Monocytes # (Auto) 0.4 (0.2-0.8) Eosinophils # (Auto) 0.0 (0.0-0.4) Basophils # (Auto) 0.0 (0.0-0.1) Absolute Immature Granulocyte (auto 0.01 x10e3/uL (0-0.1) Prothrombin Time 14.3 seconds (11.9-14.5) Prothromb Time International Ratio 1.05 Activated Partial Thromboplast Time 30.5 seconds (23.8-35.5) Urine Color Yellow (YELLOW) Urine Clarity Sl cloudy (CLEAR) Urine pH 6.5 (5 - 7) Urine Specific [place] 1.030 (1.010-1.025) Urine Protein Negative (NEGATIVE) Urine Glucose (UA) Negative (NEGATIVE) Urine Ketones Negative (NEGATIVE) Urine Blood Trace (NEGATIVE) Urine Nitrite Negative (NEGATIVE) Urine Bilirubin Negative (NEGATIVE) Urine Urobilinogen 0.2 mg/dL (0.2 - 1) Urine Leukocyte Esterase Negative (NEGATIVE) Urine RBC 6-10 /HPF (0-5) Urine WBC 0-5 /HPF (0-5) Urine Epithelial Cells Moderate /LPF (NONE) Urine Bacteria Moderate /HPF (NONE) Urine Test Negative (NEGATIVE) Sodium Level 139 mmol/L (136-145) Potassium Level 4.1 mmol/L (3.5-5.1) Chloride Level 104 mmol/L (98-107) Carbon Dioxide Level 27 mmol/L (22-29) Anion Gap 12.1 mmol/L (8-16) Blood Urea Nitrogen 6 mg/dL (7-26) Creatinine 0.98 mg/dL (0.57-1.11) Estimat Glomerular Filtration Rate > 60 ML/MIN (60-) BUN/Creatinine Ratio 6 (6-25) Glucose Level 98 mg/dL (74-118) Calcium Level 9.5 mg/dL (8.4-10.2) Total Bilirubin 0.2 mg/dL (0.2-1.2) Aspartate Amino Transf (AST/SGOT) 33 IU/L (5-34) Alanine Aminotransferase (ALT/SGPT) 38 IU/L (0-55) Alkaline Phosphatase 72 IU/L (40-150) Creatine Kinase 115 IU/L (29-168) Creatine Kinase MB 0.60 ng/mL (0-5.0) Troponin I 0.002 ng/mL (0-0.300) B-Type Natriuretic Peptide 12.1 pg/mL (0-100) Total Protein 8.0 g/dL (6.5-8.1) Albumin 4.1 g/dL (3.5-5.0) Globulin 3.9 g/dL (2.3-3.5) Albumin/Globulin Ratio 1.1 (0.8-2.0) Lab results reviewed: Yes Imaging Imaging results reviewed: Yes Impressions IMPRESSION: Low lung volumes. Subtle right infrahilar and left basilar haziness can be due to atelectasis or pneumonia. Lung field evaluation is limited due to suboptimal portable technique low lung volumes and body habitus. Assessment & Plan Medical Decision Making MDM 34-year-old female arrives to the cough shortness of breath, clinically her presentation is consistent with Covid 19, however, she has a history of pulmonary embolus in the past. Patient is currently on xarelto and compliant. Assessment & Plan Final Impression: (1) COVID-19 Depart Disposition: HOME, SELF-CARE Last Vital Signs Date Time Temp Pulse Resp B/P (MAP) Pulse Ox O2 Delivery O2 Flow Rate FiO2 02/15/20 18:18 101.4 92 18 125/90 99 Room Air Home Meds Active Scripts Azithromycin (Z-TINA) 250 Mg Tablet, 1 PKG PO DIRECTED, #1 PKG 0 Refills Prov:LUKE CLARK, 02/16/20 Acetaminophen (ACETAMINOPHEN) 500 Mg Tablet, 1 TAB PO Q6H PRN for pain, #90 THERAPEUTICALLY SUBSTITUTED WITH ACETAMINOPHEN 325MG Prov:IRWIN NUGENT MD 02/14/20 Tizanidine Hcl (TIZANIDINE HCL) 4 Mg Tablet, 4 MG PO Q8H PRN for pain, #20 TAB Prov:IRWIN NUGENT MD 02/14/20 Reported Medications Metoprolol Succinate (METOPROLOL SUCCINATE) 50 Mg Tab.er.24h, 50 MG PO DAILY, MG 02/14/20 Rivaroxaban (XARELTO) 20 Mg Tablet, DAILY 02/14/20 Discontinued Scripts Warfarin Sodium (COUMADIN) 5 Mg Tablet, 18 MG PO QD17 for 10 Days Prov:DARIN PATEL MD 05/14/18 Pantoprazole Sod (PROTONIX) 40 Mg/Ml Susp, 40 MG PO ACB for 30 Days Prov:DARIN PATEL MD 05/14/18 Medications in the ED Sodium Chloride 50 ml @ ud STK-MED ONCE .ROUTE ; Start 02/15/20 at 20:13; Stop 02/15/20 at 20:07; Status DC Iopamidol 74,000 mg STK-MED ONCE INJ ; Start 02/15/20 at 20:13; Stop 02/15/20 at 20:08; Status DC LUKE CLARK DO Feb 15, 2020 22:37
[2020-02-16] MEDS ORDERED: AZITHROMYCIN250 MG PO (00:15)
== END 2020-02-15 23:00 | disposition home or self-care (01) ==
LOC: ER 18:20
DX: U07.1 COVID-19 (principal); R50.9 Fever, unspecified; R05 Cough; R53.81 Other malaise; I10 Essential (primary) hypertension; Z86.711 Personal history of pulmonary embolism; Z79.01 Long term (current) use of anticoagulants
CPT/HCPCS: 36415; 71045; 71260; 80053; 81001; 81025; 82550; 82553; 83880; 84484; 85025; 85610; 85730; 93005; 99284; Q9967

== ENCOUNTER 2021-01-29 06:52 | Emergency (ER) | payer BC, MEDICARE ==
[~2021-01-29] VITALS: Ht 154.9 cm; Wt 87.1 kg
[~2021-01-29 06:52] MED LIST changes: +AZITHROMYCIN250 MG PO
[2021-01-29] MEDS ORDERED: SODIUM CHLORIDE 0.9% 1000ML 1,000 ML IV STA (06:55)
[2021-01-29 07:31] LABS: BASOPHILS # (AUTO) 0.1 (0.0-0.1); BASOPHILS % 0.9 % (0.0-1.0); EOSINOPHILS # (AUTO) 0.5 (0.0-0.4); EOSINOPHILS % 6.3 % (0.0-6.0); HEMATOCRIT 40.4 % (34.2-44.1); LYMPHOCYTES % 38.4 % (18.0-39.1); MEAN CORPUSCULAR HEMOGLOBIN 28.8 pg (28-32); MEAN CORPUSCULAR HGB CONC 32.2 g/dL (31-35); MEAN CORPUSCULAR VOLUME 89.6 fL (81-99); MONOCYTES # (AUTO) 0.7 (0.2-0.8); MONOCYTES % 9.5 % (4.4-11.3); NEUTROPHILS # (AUTO) 3.5 (2.1-6.9); NEUTROPHILS % 44.6 % (38.7-80.0); PLATELET COUNT 285 x10e3/uL (140-360); RED BLOOD COUNT 4.51 x10e6/uL (3.6-5.1); RED CELL DISTRIBUTION WIDTH 13.9 % (11.7-14.4)
[2021-01-29 07:47] LABS: ALANINE AMINOTRANSFERASE 13 IU/L (0-55); ALBUMIN 3.9 g/dL (3.5-5.0); ALBUMIN/GLOBULIN RATIO 1.1 (0.8-2.0); ALKALINE PHOSPHATASE 72 IU/L (40-150); ANION GAP 12.9 mmol/L (8-16); BLOOD UREA NITROGEN 11 mg/dL (7-26); BUN/CREATININE RATIO 14 (6-25); CARBON DIOXIDE 25 mmol/L (22-29); CHLORIDE 107 mmol/L (98-107); CREATINE KINASE 95 IU/L (29-168); CREATININE, SERUM 0.76 mg/dL (0.57-1.11); EST GLOMERULAR FILTRATION RATE 106 ML/MIN (60-); GLUCOSE 108 mg/dL (74-118); MAGNESIUM 1.7 MG/DL (1.3-2.1); POTASSIUM 3.9 mmol/L (3.5-5.1); SODIUM 141 mmol/L (136-145)
[2021-01-29 08:37] LABS: AMPHETAMINES SCREEN,URINE NEGATIVE (NEGATIVE); BENZODIAZEPINES SCREEN,URINE NEGATIVE (NEGATIVE); PHENCYCLIDINE SCREEN,URINE NEGATIVE (NEGATIVE)
[2021-01-29 08:38] LABS: CLARITY,URINE CLEAR (CLEAR); COLOR,URINE YELLOW (YELLOW); KETONES,URINE NEGATIVE (NEGATIVE); LEUKOCYTE ESTERASE ,URINE NEGATIVE (NEGATIVE); NITRITE,URINE NEGATIVE (NEGATIVE); PROTEIN,URINE DIPSTICK NEGATIVE (NEGATIVE); URINE UROBILINOGEN 0.2 mg/dL (0.2 - 1)
[2021-01-29 08:58] LABS: BACTERIA,URINE RARE /HPF; EPITHELIAL CELLS,URINE FEW /LPF
== END 2021-01-29 10:08 | disposition home or self-care (01) ==
LOC: ER 07:14
DX: R07.89 Other chest pain (principal); R42 Dizziness and giddiness; I10 Essential (primary) hypertension; R94.31 Abnormal electrocardiogram [ECG] [EKG]; Z86.711 Personal history of pulmonary embolism
CPT/HCPCS: 36415; 71045; 80053; 80307; 81001; 81025; 82550; 82553; 83735; 84484; 84702; 85025; 85379; 93005; 99284; J7030

== ENCOUNTER 2022-10-07 07:57 | Emergency (ER) | payer BC, MEDICAID ==
[~2022-10-07] VITALS: Ht 154.9 cm; Wt 87.1 kg
[2022-10-07] MEDS ORDERED: SODIUM CHLORIDE 0.9% 1000ML 1,000 ML IV STA (08:15)
[2022-10-07 08:39] LABS: BASOPHILS # (AUTO) 0.1 (0.0-0.1); BASOPHILS % 0.8 % (0.0-1.0); EOSINOPHILS # (AUTO) 0.2 (0.0-0.4); EOSINOPHILS % 2.8 % (0.0-6.0); HEMATOCRIT 37.6 % (34.2-44.1); HEMOGLOBIN 11.8 g/dL (12.0-16.0); LYMPHOCYTES # (AUTO) 2.6 (1.0-3.2); LYMPHOCYTES % 42.9 % (18.0-39.1); MEAN CORPUSCULAR HEMOGLOBIN 27.4 pg (28-32); MEAN CORPUSCULAR HGB CONC 31.4 g/dL (31-35); MEAN CORPUSCULAR VOLUME 87.2 fL (81-99); MONOCYTES # (AUTO) 0.7 (0.2-0.8); MONOCYTES % 11.1 % (4.4-11.3); NEUTROPHILS # (AUTO) 2.6 (2.1-6.9); NEUTROPHILS % 42.2 % (38.7-80.0); PLATELET COUNT 321 x10e3/uL (140-360); RED BLOOD COUNT 4.31 x10e6/uL (3.6-5.1); RED CELL DISTRIBUTION WIDTH 13.7 % (11.7-14.4)
[2022-10-07 08:49] LABS: INR 0.99; PROTHROMBIN TIME 13.3 seconds (11.9-14.5)
[2022-10-07 08:50] LABS: PARTIAL THROMBOPLASTIN TIME 28.8 seconds (23.8-35.5)
[2022-10-07 08:59] LABS: ALANINE AMINOTRANSFERASE 11 IU/L (0-55); ALBUMIN/GLOBULIN RATIO 1.1 (0.8-2.0); ALKALINE PHOSPHATASE 57 IU/L (40-150); ANION GAP 13.1 mmol/L (8-16); BLOOD UREA NITROGEN 17 mg/dL (7-26); BUN/CREATININE RATIO 22 (6-25); CALCIUM 9.3 mg/dL (8.4-10.2); CARBON DIOXIDE 24 mmol/L (22-29); CHLORIDE 107 mmol/L (98-107); CREATINE KINASE 150 IU/L (29-168); CREATININE, SERUM 0.79 mg/dL (0.57-1.11); GLUCOSE 92 mg/dL (74-118); MAGNESIUM 1.8 MG/DL (1.3-2.1); POTASSIUM 4.1 mmol/L (3.5-5.1); SODIUM 140 mmol/L (136-145)
[2022-10-07 10:19] VITALS: BP 118/78
== END 2022-10-07 10:15 | disposition home or self-care (01) ==
LOC: ER 08:01
DX: R07.89 Other chest pain (principal); I10 Essential (primary) hypertension; Z20.822 Contact with and (suspected) exposure to COVID-19; Z86.711 Personal history of pulmonary embolism
CPT/HCPCS: 36415; 71045; 80053; 82550; 82553; 83735; 84484; 84702; 85025; 85379; 85610; 85730; 93005; 99284; J7030; U0002

== ENCOUNTER 2022-10-08 16:24 | Emergency (ER) | payer BC, MEDICAID ==
[~2022-10-08] VITALS: Ht 160 cm; Wt 91.4 kg
== END 2022-10-08 17:49 | disposition home or self-care (01) ==
LOC: FSED 16:44
DX: R07.89 Other chest pain (principal); R06.02 Shortness of breath; I10 Essential (primary) hypertension; F41.9 Anxiety disorder, unspecified; R94.31 Abnormal electrocardiogram [ECG] [EKG]; Z86.711 Personal history of pulmonary embolism
CPT/HCPCS: 80053; 81003; 81025; 82553; 84484; 85025; 85379; 93005; 99284

== ENCOUNTER 2022-10-23 16:56 | Emergency (ER) | payer BC, MEDICAID ==
[~2022-10-23] VITALS: Ht 160 cm; Wt 91.2 kg
[2022-10-23] MEDS ORDERED: HYDROXYZINE HCL 25 MG TAB PO ONE (17:45)
[2022-10-23 17:49] LABS: BASOPHILS % 0.5 % (0.0-1.0); EOSINOPHILS # (AUTO) 0.4 (0.0-0.4); EOSINOPHILS % 5.4 % (0.0-6.0); HEMATOCRIT 39.7 % (34.2-44.1); HEMOGLOBIN 12.8 g/dL (12.0-16.0); LYMPHOCYTES # (AUTO) 2.6 (1.0-3.2); LYMPHOCYTES % 35.5 % (18.0-39.1); MEAN CORPUSCULAR HEMOGLOBIN 27.4 pg (28-32); MEAN CORPUSCULAR HGB CONC 32.2 g/dL (31-35); MONOCYTES # (AUTO) 0.7 (0.2-0.8); MONOCYTES % 9.4 % (4.4-11.3); NEUTROPHILS # (AUTO) 3.6 (2.1-6.9); NEUTROPHILS % 48.9 % (38.7-80.0); PLATELET COUNT 340 x10e3/uL (140-360); RED BLOOD COUNT 4.67 x10e6/uL (3.6-5.1); RED CELL DISTRIBUTION WIDTH 13.6 % (11.7-14.4)
[2022-10-23 18:09] LABS: LIPASE 32 U/L (8-78)
[2022-10-23 18:11] LABS: ALBUMIN 4.3 g/dL (3.5-5.0); ALBUMIN/GLOBULIN RATIO 1.2 (0.8-2.0); ANION GAP 17.4 mmol/L (8-16); CALCIUM 9.5 mg/dL (8.4-10.2); CREATININE, SERUM 0.79 mg/dL (0.57-1.11); POTASSIUM 3.4 mmol/L (3.5-5.1)
[2022-10-23] MEDS ORDERED: IOPAMIDOL 370 MG/ML 100 ML INFUS..BTL INJ ONE (18:45)
[2022-10-23] MEDS ORDERED: PROTONIX20 MG PO (20:35)
[2022-10-23] MEDS ORDERED: DICYCLOMINE HCL20 MG PO (20:35)
[2022-10-23] MEDS ORDERED: ONDANSETRON ODT4 MG PO (20:35)
[2022-10-23 20:48] VITALS: BP 118/59
== END 2022-10-23 20:48 | disposition home or self-care (01) ==
LOC: ER 17:02
DX: R10.13 Epigastric pain (principal); K29.70 Gastritis, unspecified, without bleeding; I10 Essential (primary) hypertension; Z86.711 Personal history of pulmonary embolism
CPT/HCPCS: 36415; 71260; 74177; 80053; 83690; 84702; 85025; 85379; 93005; 99284; J3410; Q9967

== ENCOUNTER 2022-11-20 08:46 | Emergency (ER) | payer BC, MEDICAID ==
[~2022-11-20] VITALS: Ht 160 cm; Wt 91.2 kg
[~2022-11-20 08:46] MED LIST changes: +DICYCLOMINE HCL20 MG PO; +ONDANSETRON ODT4 MG PO; +PROTONIX20 MG PO
[2022-11-20] MEDS ORDERED: FAMOTIDINE 20 MG/2 ML VIAL IV STA (09:09)
[2022-11-20] MEDS ORDERED: NITROGLYCERIN 0.4 MG SUBL SL ONE (09:15)
[2022-11-20] MEDS ORDERED: DONNATAL/LIDOCAINE/MAALOX 30 ML SUSP PO ONE (09:15)
[2022-11-20] MEDS ORDERED: SODIUM CHLORIDE 0.9% 1000ML 1,000 ML IV ONE (09:15)
[2022-11-20 10:27] LABS: BASOPHILS # (AUTO) 0.1 (0.0-0.1); BASOPHILS % 0.6 % (0.0-1.0); EOSINOPHILS % 0.2 % (0.0-6.0); HEMATOCRIT 40.9 % (34.2-44.1); HEMOGLOBIN 13.1 g/dL (12.0-16.0); LYMPHOCYTES # (AUTO) 1.4 (1.0-3.2); LYMPHOCYTES % 15.9 % (18.0-39.1); MEAN CORPUSCULAR HEMOGLOBIN 27.3 pg (28-32); MEAN CORPUSCULAR VOLUME 85.2 fL (81-99); MONOCYTES # (AUTO) 0.7 (0.2-0.8); MONOCYTES % 7.8 % (4.4-11.3); NEUTROPHILS # (AUTO) 6.7 (2.1-6.9); NEUTROPHILS % 75.3 % (38.7-80.0); PLATELET COUNT 295 x10e3/uL (140-360); RED CELL DISTRIBUTION WIDTH 13.8 % (11.7-14.4)
[2022-11-20 10:58] LABS: ALANINE AMINOTRANSFERASE 9 IU/L (0-55); ALBUMIN 4.5 g/dL (3.5-5.0); ALKALINE PHOSPHATASE 63 IU/L (40-150); BLOOD UREA NITROGEN 13 mg/dL (7-26); BUN/CREATININE RATIO 15 (6-25); CARBON DIOXIDE 11 mmol/L (22-29); CHLORIDE 107 mmol/L (98-107); CREATININE, SERUM 0.85 mg/dL (0.57-1.11); GLUCOSE 75 mg/dL (74-118); LIPASE 26 U/L (8-78); SODIUM 138 mmol/L (136-145)
[2022-11-20] MEDS ORDERED: IOPAMIDOL 370 MG/ML 100 ML INFUS..BTL INJ ONE (11:37)
[2022-11-20] MEDS ORDERED: CARAFATE1 GM/10 ML PO (12:38)
[2022-11-20 13:08] VITALS: BP 143/72; PULSE 89; RESP 18; TEMP 98.4; O2SAT 98
== END 2022-11-20 13:27 | disposition home or self-care (01) ==
LOC: VACCPMC 08:51
DX: R06.02 Shortness of breath (principal); K22.0 Achalasia of cardia; K44.9 Diaphragmatic hernia without obstruction or gangrene
CPT/HCPCS: 36415; 71260; 74177; 80053; 83690; 84702; 85025; 85379; 93005; 99284; J7030; Q9967

== ENCOUNTER → 2022-12-21 | Outpatient (CLI) | payer BC, MEDICAID ==
[~2022-12-21] MED LIST changes: +CARAFATE1 GM/10 ML PO
== END ==
LOC: US 15:34
PROVIDERS: ATTEND Internal Medicine
DX: R63.4 Abnormal weight loss (principal)
CPT/HCPCS: 76536

== ENCOUNTER 2024-06-11 13:19 | Emergency (ER) | payer BC ==
[~2024-06-11] VITALS: Ht 154.9 cm; Wt 82.6 kg
[~2024-06-11 13:19] MED LIST changes: +FEROSUL325 MG PO
[2024-06-11 14:00] VITALS: TEMP 98.3
[2024-06-11 14:55] LABS: BASOPHILS % 0.8 % (0.0-1.0); EOSINOPHILS % 0.4 % (0.0-6.0); HEMATOCRIT 40.9 % (34.2-44.1); HEMOGLOBIN 12.8 g/dL (12.0-16.0); LYMPHOCYTES # (AUTO) 1.6 (1.0-3.2); LYMPHOCYTES % 34.6 % (18.0-39.1); MEAN CORPUSCULAR HEMOGLOBIN 27.9 pg (28-32); MEAN CORPUSCULAR HGB CONC 31.3 g/dL (31-35); MEAN CORPUSCULAR VOLUME 89.3 fL (81-99); MONOCYTES # (AUTO) 0.4 (0.2-0.8); NEUTROPHILS # (AUTO) 2.7 (2.1-6.9); NEUTROPHILS % 56.2 % (38.7-80.0); PLATELET COUNT 304 x10e3/uL (140-360); RED BLOOD COUNT 4.58 x10e6/uL (3.6-5.1); RED CELL DISTRIBUTION WIDTH 15.2 % (11.7-14.4); WHITE BLOOD COUNT 4.74 x10e3/uL (4.8-10.8)
[2024-06-11 15:10] LABS: ALANINE AMINOTRANSFERASE 11 IU/L (0-55); ALBUMIN 4.4 g/dL (3.5-5.0); ALBUMIN/GLOBULIN RATIO 1.3 (0.8-2.0); ALKALINE PHOSPHATASE 57 IU/L (40-150); ANION GAP 14.6 mmol/L (8-16); BILIRUBIN,TOTAL 0.5 mg/dL (0.2-1.2); BLOOD UREA NITROGEN 8 mg/dL (7-26); BUN/CREATININE RATIO 10 (6-25); CALCIUM 9.8 mg/dL (8.4-10.2); CARBON DIOXIDE 24 mmol/L (22-29); CHLORIDE 106 mmol/L (98-107); CREATININE, SERUM 0.84 mg/dL (0.57-1.11); EST GLOMERULAR FILTRATION RATE 92 ML/MIN (>=60); GLUCOSE 89 mg/dL (74-118); POTASSIUM 3.6 mmol/L (3.5-5.1); SODIUM 141 mmol/L (136-145); TOTAL PROTEIN 7.8 g/dL (6.5-8.1)
[2024-06-11] MEDS: KETOROLAC TROMETHAMINE 30 MG/ML VIAL IV STA (15:19)
[2024-06-11] MEDS: SODIUM CHLORIDE 0.9% 1000ML 1,000 ML IV STA (15:19)
[2024-06-11] MEDS: METOCLOPRAMIDE HCL 10 MG/2ML VIAL IV ONE (15:20)
[2024-06-11] MEDS: DIPHENHYDRAMINE HCL INJ 50 MG/ML VIAL IV ONE (15:20)
[2024-06-11 15:28] VITALS: PULSE 88; RESP 16
[2024-06-11 16:43] VITALS: BP 119/79; PULSE 88; RESP 16; O2SAT 100
== END 2024-06-11 16:45 | disposition home or self-care (01) ==
LOC: ER 14:10
DX: R51.9 Headache, unspecified (principal); D64.9 Anemia, unspecified; F41.9 Anxiety disorder, unspecified; Z86.711 Personal history of pulmonary embolism
CPT/HCPCS: 36415; 70450; 80053; 84702; 85025; 99284; J1200; J1885; J2765; J7030

== ENCOUNTER → 2025-03-11 | Day surgery (SDC) | payer BC ==
[2025-03-05 13:55] LABS: BASOPHILS % 1.0 % (0.0-1.0); EOSINOPHILS % 1.2 % (0.0-6.0); LYMPHOCYTES % 43.5 % (18.0-39.1); MONOCYTES % 9.9 % (4.4-11.3); NEUTROPHILS % 44.2 % (38.7-80.0); RED CELL DISTRIBUTION WIDTH 15.8 % (11.7-14.4)
[2025-03-05 14:24] LABS: EST GLOMERULAR FILTRATION RATE 102.0 ML/MIN (>=60)
[~2025-03-11] MED LIST changes: +D3-5000125 MCG; +FAMOTIDINE 20 MG/2 ML VIAL IV ONE; +FENTANYL CITRATE/PF 100MCG/2 ML INJ ONE; +GLYCOPYRROLATE INJ 0.2 MG/ML VIAL ONE; +LIDOCAINE HCL 2% LOCAL INJ 5 ML SDV VIAL INJ ONE; +PROPOFOL IV EMULSION 10 MG/ML 20 ML VIAL ONE
[2025-03-11] MEDS: LACTATED RINGER'S 1,000 ML ONE (07:21)
[2025-03-11 09:19] VITALS: TEMP 97.5
[2025-03-11 09:50] VITALS: BP 110/70; PULSE 96; RESP 18; O2SAT 100
== END | disposition home or self-care (01) ==
LOC: OR 06:25
PROVIDERS: ATTEND Surgery
DX: K29.00 Acute gastritis without bleeding (principal); K21.9 Gastro-esophageal reflux disease without esophagitis; E66.01 Morbid (severe) obesity due to excess calories; F41.9 Anxiety disorder, unspecified; K44.9 Diaphragmatic hernia without obstruction or gangrene; Z88.6 Allergy status to analgesic agent; Z91.048 Other nonmedicinal substance allergy status; Z01.810 Encounter for preprocedural cardiovascular examination; Z01.812 Encounter for preprocedural laboratory examination; Z98.890 Other specified postprocedural states; Z86.711 Personal history of pulmonary embolism
CPT/HCPCS: 36415; 43235; 80053; 81025; 85025; 93005; J1308; J2003; J2704; J3010; J7121; 43239

== ENCOUNTER 2025-05-19 13:59 | Emergency (ER) | payer BC ==
[~2025-05-19] VITALS: Ht 154.9 cm; Wt 81.4 kg
[~2025-05-19 13:59] MED LIST changes: -FAMOTIDINE 20 MG/2 ML VIAL IV ONE; -FENTANYL CITRATE/PF 100MCG/2 ML INJ ONE; -GLYCOPYRROLATE INJ 0.2 MG/ML VIAL ONE; -LIDOCAINE HCL 2% LOCAL INJ 5 ML SDV VIAL INJ ONE; -PROPOFOL IV EMULSION 10 MG/ML 20 ML VIAL ONE
[2025-05-19 14:40] VITALS: TEMP 97.8
[2025-05-19] MEDS ORDERED: IOPAMIDOL 370 MG/ML 100 ML INFUS..BTL INJ ONE (15:48)
[2025-05-19] MEDS: SODIUM CHLORIDE 0.9% 1000ML 1,000 ML IV ONE (15:55)
[2025-05-19] MEDS: ENOXAPARIN INJ 80 MG/0.8 ML SYR SC STA (17:32)
[2025-05-19] MEDS ORDERED: ENOXAPARIN SODIUM INJ 100 MG/ML SYR SC ONE (17:32)
[2025-05-19 17:42] VITALS: PULSE 90; RESP 18; O2SAT 100
== END 2025-05-19 18:29 | disposition other institution (70) ==
LOC: FSED 14:55
DX: R06.00 Dyspnea, unspecified (principal); R07.89 Other chest pain; R00.0 Tachycardia, unspecified; R01.1 Cardiac murmur, unspecified; R94.31 Abnormal electrocardiogram [ECG] [EKG]; Z86.711 Personal history of pulmonary embolism
CPT/HCPCS: 71260; 80053; 80307; 81003; 81025; 83880; 84484; 85025; 85379; 93005; 99284; J1650; J7030; Q9967